=== PATIENT | female | born 1980 ===

== ENCOUNTER 2024-03-05 11:30 | Inpatient (IN) | payer OTHER ==
[~2024-03-05] VITALS: Ht 152.4 cm; Wt 90.7 kg
[2024-03-05 14:11] VITALS: BP 140/80
[2024-03-05] MEDS ORDERED: LEXAPRO20 MG PO (14:11)
[2024-03-08 09:37] LABS: RH POSITIVE
[2024-03-11] MEDS ORDERED: POVIDONE-IODINE 118 ML BOTT TOP ONE (12:30)
[2024-03-11] MEDS ORDERED: CEFAZOLIN SODIUM 1,000 MG VIAL IV SCH ×2 (12:30→18:00)
[2024-03-11] MEDS ORDERED: MORPHINE SULFATE 4 MG/ML VIAL IV ONE ×3 (14:10→15:40)
[2024-03-11] MEDS ORDERED: ONDANSETRON HCL 2 MG/ML VIAL IV PRN (14:15)
[2024-03-11] MEDS ORDERED: MORPHINE SULFATE 4 MG/ML VIAL IV PRN (14:15)
[2024-03-11 17:48] VITALS: BP 160/65
[2024-03-11 18:20] LABS: HEMATOCRIT 36.5 % (36.0-45.00); HEMOGLOBIN 12.6 g/dL (12.0-15.00); MEAN CELL VOLUME 89.3 fL (80.00-100.00); MEAN CORPUSCULAR HEMOGLOBIN 30.9 pg (27.00-32.0); MEAN CORPUSCULAR HGB CONC 34.6 g/dl (32.0-36.0); PLATELET COUNT 337 K/uL (150-450); RED BLOOD COUNT 4.09 M/uL (4.00-6.00); RED CELL DISTRIBUTION WIDTH 12.6 % (11.5-14.5)
[2024-03-12] VITALS: BP 130/83
[2024-03-12] MEDS ORDERED: IBUprofen 800 MG TABLET PO PRN (07:00)
[2024-03-12] MEDS ORDERED: GABAPENTIN 300 MG CAPSULE PO PRN (07:00)
[2024-03-12 08:57] VITALS: BP 149/80
[2024-03-12] MEDS ORDERED: ENOXAPARIN SODIUM 40 MG/0.4 ML SYRINGE SUBCUTANEO SCH (09:00)
[2024-03-12 09:05] VITALS: BP 149/80
[2024-03-12 13:41] VITALS: BP 149/80
[2024-03-12 16:00] VITALS: BP 145/83
[2024-03-13 01:00] VITALS: BP 150/90
[2024-03-13] MEDS ORDERED: GABAPENTIN300 MG PO (07:15)
[2024-03-13] MEDS ORDERED: LEVSIN/SL0.125 MG SL (07:16)
[2024-03-13] MEDS ORDERED: IBUPROFEN800 MG PO (07:16)
[2024-03-13 08:15] VITALS: BP 135/90
[2024-03-13] MEDS ORDERED: SIMETHICONE 125 MG CAPSULE PO ONE (12:00)
== END 2024-03-13 11:17 | disposition home or self-care (01) | DRG 743 ==
LOC: SURH 03-11 07:00 → OB/GYN 03-11 07:51 → O/R 03-11 07:51 → SURH 03-11 11:30 → OB/GYN 03-11 15:57
PROVIDERS: ADMIT Obstetrics & Gynecology Gynecology; ATTEND Obstetrics & Gynecology Gynecology
PROC: 0UT70ZZ Resection of Bilateral Fallopian Tubes, Open Approach (ICD-10-PCS; 2024-03-11)
PROC: 0USG0ZZ Reposition Vagina, Open Approach (ICD-10-PCS; 2024-03-11)
PROC: 0UT90ZZ Resection of Uterus, Open Approach (ICD-10-PCS; principal; 2024-03-11 07:00)
DX: D25.1 Intramural leiomyoma of uterus (principal); D25.2 Subserosal leiomyoma of uterus; Z20.822 Contact with and (suspected) exposure to COVID-19